=== PATIENT | male | born 1960 | race Caucasian/White ===

== ENCOUNTER 2017-09-06 01:16 | Emergency (ER) | payer BC ==
[2017-09-06] MEDS ORDERED: LIDOCAINE 2% VISCOUS SOLN 20 ML UDCUP PO ONE (01:46)
[2017-09-06] MEDS ORDERED: CLINDAMYCIN HCL 150 MG CAPSULE PO ONE (01:46)
--- NOTE | 2017-09-06 01:54 | ER Document Report ---
ED Oral Problem - General Chief Complaint: Toothache Stated Complaint: TOOTHACHE Time Seen by Provider: 09/06/17 01:38 Mode of Arrival: Ambulatory Information source: Patient Notes: 57-year-old male presents to ED for dental pain to tooth #3. He states he had a large part of tooth break off about 6 months ago and he had some minor pain off and on since then. He states yesterday the pain increased to about 3/5 and today it has been as much is 5 /5. He states he took ibuprofen he thinks about 600 mg around 8:00 now his pain is 3/5. He states his family scared him because he had some swelling to his cheek and told me needed to come in and get started on some antibiotics. He has mild swelling to the right jaw and face. - HPI Patient complains to provider of: Swelling of face, Swelling of jaw, Toothache Onset: Other - Started out mild 6 months ago started worse yesterday became concerned today when his jaw had some mild swelling and family scanning. Came in tonight to get some antibiotics. Quality of pain: Achy, Dull Severity: Moderate Pain Level: 3 Swollen jaw/face: Mild Associated symptoms: Dental decay, Jaw pain, Other - Mild swelling to the right jaw and face from a dental infection to tooth #3 states he lost a large part of the tooth about 6 months ago Worsened by: Cold Relieved by: Nothing Similar symptoms previously: Yes Recently seen / treated by doctor/dentist: No - Related Data Allergies/Adverse Reactions: No Known Allergies Allergy (Unverified 09/06/17 01:18) Past Medical History - General Information source: Patient - Social History Smoking Status: Current Every Day Smoker Cigarette use (# per day): Yes - 3-5 cigarettes a day Chew tobacco use (# tins/day): No Smoking Education Provided: Yes - 4 minutes Frequency of alcohol use: Occasional Drug Abuse: None Occupation: [employer] Lives with: Family Family History: Reviewed & Not Pertinent Patient has suicidal ideation: No Patient has homicidal ideation: No - Past Medical History Cardiac Medical History: Reports: Hx Hypercholesterolemia Pulmonary Medical History: Reports: Hx COPD EENT Medical History: Reports: None Neurological Medical History: Reports: None Endocrine Medical History: Reports: None Renal/ Medical History: Reports: None Malignancy Medical History: Reports None GI Medical History: Reports: None Musculoskeltal Medical History: Reports Hx Arthritis, Reports Hx Musculoskeletal Deformity, Reports Hx Musculoskeletal Trauma Skin Medical History: Reports None Psychiatric Medical History: Reports: Hx Anxiety Traumatic Medical History: Reports: Hx Fractures - Skull and ribs, Hx Pneumothorax - Did not need chest tube, Hx Traumatic Brain Injury Infectious Medical History: Reports: None Past Surgical History: Reports: Hx Orthopedic Surgery - Tendon repair to thumb - Immunizations Immunizations up to date: Yes Review of Systems - Review of Systems Notes: Constitutional: ABSENT: chills, fever(s), headache(s), weight gain, weight loss Dental pain to tooth #3 mild jaw and face swelling Cardiovascular: Negative chest pain, dyspnea on exertion, edema, orthropnea, palpitations] Respiratory: Negative cough, hemoptysis, shortness of breath Gastrointestinal: abdominal pain, constipation, diarrhea, hematemesis, hematochezia, nausea, vomiting Genitourinary: No complaints Musculoskeletal: No complaints no joint tenderness no joint swelling Integumentary: Negative assessment. No redness to the face mild swelling Neurological: Denies abnormal gait, abnormal speech, confusion, dizziness, focal weakness, syncope Psychiatric: Denies: anxiety, depression, homicidal ideation, suicidal ideation Endocrine: No complaint Hematologic/Lymphatic: No complaints of easy bleeding, easy bruising, lymphadenopathy] Physical Exam - Vital signs Vitals: Temp Pulse Resp BP Pulse Ox 98.1 F 77 16 141/84 H 96 09/06/17 01:19 09/06/17 01:19 09/06/17 01:19 09/06/17 01:19 09/06/17 01:19 - General Notes: PHYSICAL EXAMINATION: GENERAL: Well-appearing, well-nourished and in no acute distress. HEAD: Atraumatic, normocephalic. EYES: Pupils equal round and reactive to light, extraocular movements intact, sclera anicteric, conjunctiva are normal. ENT: Mild swelling to gums around tooth #3 with mild swelling to the cheek at the jawline and about an inch up. NECK: Normal range of motion, supple without lymphadenopathy LUNGS: Breath sounds clear to auscultation bilaterally and equal. No wheezes rales or rhonchi. HEART: Regular rate and rhythm without murmurs ABDOMEN: Soft, nontender, nondistended abdomen. No guarding, no rebound. No masses appreciated. Musculoskeletal: Normal range of motion, no pitting or edema. No cyanosis. NEUROLOGICAL: Cranial nerves grossly intact. Normal speech, normal gait. Normal sensory, motor exams PSYCH: Normal mood, normal affect. SKIN: Warm, Dry, normal turgor, no rashes or lesions noted. Course - Re-evaluation Re-evalutation: 09/06/17 02:11 Patient had a dental infection to the tooth #3. He states that he broke the tooth about 6 months ago started having increased pain yesterday and then the pain was a little worse tonight and his family and friends told him with swelling to his jaw he needed to come to the emergency room because he could have all chronic complications if he did not get antibiotics. Patient states the main reason he came to the emergency room was to get antibiotics. Patient was treated with clindamycin 600 mg in the emergency room as well as viscous lidocaine in a syringe that he can take home and applied to the area as needed for pain patient was given precautions of using viscous lidocaine of chewing on his cheek or irritation or numbness to his tongue. Patient verbalized understanding of this. Patient had no complications when received the lidocaine in the emergency room. Patient was discharged home with a prescription for clindamycin and instructions to follow-up with the dentist as soon as possible. Patient was also given instructions concerning stopping smoking as this is affecting his COPD and his dental health. Patient verbalized understanding of all instructions and agreed with plan of care. Patient stated he had no other questions or concerns at this time. - Vital Signs Vital signs: Temp Pulse Resp BP Pulse Ox 97.2 F 74 16 115/78 96 09/06/17 02:04 09/06/17 02:04 09/06/17 01:19 09/06/17 02:04 09/06/17 02:04 Discharge - Discharge Clinical Impression: Pain due to dental caries Condition: Stable Disposition: HOME, SELF-CARE Instructions: Family Physicians / Practices Additional Instructions: TOOTHACHE: Your pain is due to dental decay. The tooth must be repaired in order for you to feel better. You will, therefore, be referred to a dentist. We do not have dentists on the staff at [facility]. Severe swelling or drainage around a tooth usually means a dental abscess. This also requires evaluation and treatment by the dentist, but antibiotics may be prescribed while awaiting dental treatment. You should be rechecked immediately if you develop major swelling of the face, increasing pain, a lump in the jaw or gums, headache, difficulty swallowing, or fever. You have been given a syringe of viscous lidocaine. You can put a small amount on your tooth every 3-4 hours for your dental pain. This will numb your gums. Be careful that she did not get on your tongue a can numb your tongue. Be careful swallowing after you use this medication CLINDAMYCIN: You have been given a prescription for the antibiotic clindamycin. It is often prescribed for infections in the mouth, such as dental infections or abscesses, and for skin infections due to MRSA. It's important that you take all the medication, unless instructed otherwise by your physician. Failure to complete the entire course can result in relapse of your condition. Common side effects of antibiotics include nausea, intestinal cramping, or diarrhea. Women may develop vaginal yeast infections, and babies can get yeast (thrush) in the mouth following the use of antibiotics. Contact your physician if you develop significant side effects from this medication. Allergy to this antibiotic can result in hives, wheezing, faintness, or itching. If symptoms of allergy occur, stop the medication and call the doctor. FOLLOW-UP CARE: You have been referred for follow-up care to the dentists listed below. Call the dentists office for an appointment as you were instructed or within the next two days. If you experience worsening or a significant change in your symptoms, notify the physician immediately or return to the Emergency Department at any time for re-evaluation. [facility] [address] [place], [place] [facility] [address] [place] [address] [facility] [address] [facility] [address] [facility] [address] [facility] [place] [address] [email or web address] [facility] [address] [place] [address] Friday- 8:00am to 5:00 pm Will see patients from other [facility]. Charges based on income and family size and accepts Medicare, Medicaid, and Insurances Will pull molars [facility] [address] [address] Hours of Operation 8:00 am - 4:30 pm weekdays The following dental offices accept Medicaid: [facility] [address]. [place] [facility] Anthony Love, Rafa, and Elaine oral surgery Dr. Hall ([place]) Dr. Hein ([place]) [facility] Drs. Charles ([place]) Dr. Garcia ([place]) [facility] Dr. Hdz ([place]) Drs. Baez and ([place]) Medicaid Care Line Prescriptions: Clindamycin HCl 300 mg PO Q6 #28 capsule Forms: Elevated Blood Pressure, Smoking Cessation Education, Return to Work
[2017-09-06 02:06] VITALS: BP 115/78
== END 2017-09-06 02:20 | disposition home or self-care (01) ==
LOC: ER 01:16
DX: K02.9 Dental caries, unspecified (principal); K08.89 Other specified disorders of teeth and supporting structures; R22.0 Localized swelling, mass and lump, head; F17.210 Nicotine dependence, cigarettes, uncomplicated
CPT/HCPCS: 99406; 99282; J3490

== ENCOUNTER 2018-06-04 20:27 | Emergency (ER) | payer SELFPAY ==
[2018-06-04 21:14] LABS: ABSOLUTE BASOPHILS # (AUTO) 0.1 10^3/uL (0.0-0.2); ABSOLUTE EOSINOPHILS # (AUTO) 0.2 10^3/uL (0.0-0.6); ABSOLUTE LYMPHOCYTES (AUTO) 1.2 10^3/uL (0.5-4.7); ABSOLUTE MONOCYTES (AUTO) 0.6 10^3/uL (0.1-1.4); ABSOLUTE NEUT (AUTO) 8.3 10^3/uL (1.7-8.2); BASOPHILS % (AUTO) 0.8 % (0-2); EOSINOPHILS % (AUTO) 2.4 % (0-6); HEMATOCRIT 44.1 % (37.9-51.0); HEMOGLOBIN 15.7 g/dL (13.5-17.0); LYMPHOCYTES % (AUTO) 11.2 % (13-45); MEAN CORPUSCULAR HEMOGLOBIN 31.4 pg (27.0-33.4); MEAN CORPUSCULAR HGB CONC 35.6 g/dL (32.0-36.0); MEAN CORPUSCULAR VOLUME 88 fl (80-97); MONOCYTES % (AUTO) 5.8 % (3-13); PLATELET COUNT 271 10^3/uL (150-450); RED BLOOD COUNT 5.01 10^6/uL (4.35-5.55); RED CELL DISTRIBUTION WIDTH 13.8 % (11.5-14.0); SEGMENTED NEUTROPHILS % (AUTO) 79.8 % (42-78); TOTAL CELLS COUNTED % (AUTO) 100 %; WHITE BLOOD COUNT 10.4 10^3/uL (4.0-10.5)
[2018-06-04 21:20] LABS: ANION GAP 10 (5-19); BLOOD UREA NITROGEN 11 mg/dL (7-20); CALCIUM 9.4 mg/dL (8.4-10.2); CARBON DIOXIDE 32 mmol/L (22-30); CHLORIDE 100 mmol/L (98-107); GLUCOSE 159 mg/dL (75-110); POTASSIUM 3.7 mmol/L (3.6-5.0); SODIUM 141.7 mmol/L (137-145)
--- NOTE | 2018-06-04 21:31 | RADIOLOGY REPORT (SQ) ---
3 VIEWS OF THE RIGHT HAND HISTORY: Metal object in hand COMPARISON: None. FINDINGS: Bone mineralization is normal. No acute fracture is seen. Joint spaces are preserved. 5 mm foreign body abutting the medial soft tissues of the third PIP joint. Additional 6 mm curvilinear foreign body abutting the medial soft tissues of the fifth PIP joint. IMPRESSION: 2 foreign bodies as listed above.
--- NOTE | 2018-06-04 21:35 | ER Document Report ---
ED General - General Chief Complaint: Hand Injury Stated Complaint: RIGHT HAND SWOLLEN Time Seen by Provider: 06/04/18 21:04 Notes: Patient is a 58-year-old male without chronic medical problems who presents with 1 week of progressively worsening pain and swelling to his right hand. He states that the swelling started after he was pulling a generator chain between his third and fourth digits and the chain slipped pulling roughly across his hand and through his fingers. He states that since that time he has had a fluctuating throbbing, constant, aching pain with associated swelling. He states the swelling has periods of worsening and improving that appear to be related to how much he is using the hand. No history of similar injury in the past. He has not done anything to treat the hand and admits that he has been continuing to work and use the hand regularly. He has not seen his general doctor regarding this concern. He states that his flexion range of motion is somewhat limited due to the swelling but when the swelling is reduced he does have full normal range of motion. Denies any additional injuries. No fever. He states sometimes he gets shooting pains that radiate from his hand up to his elbow. No loss of sensation. - Related Data Allergies/Adverse Reactions: No Known Allergies Allergy (Unverified 09/06/17 01:18) Past Medical History - General Information source: Patient - Social History Smoking Status: Current Every Day Smoker Chew tobacco use (# tins/day): No Frequency of alcohol use: Rare Drug Abuse: None Lives with: Spouse/Significant other Family History: Reviewed & Not Pertinent Patient has suicidal ideation: No Patient has homicidal ideation: No - Past Medical History Cardiac Medical History: Reports: Hx Hypercholesterolemia Pulmonary Medical History: Reports: Hx COPD Renal/ Medical History: Denies: Hx Peritoneal Dialysis Musculoskeletal Medical History: Reports Hx Arthritis, Reports Hx Musculoskeletal Deformity, Reports Hx Musculoskeletal Trauma Psychiatric Medical History: Reports: Hx Anxiety Traumatic Medical History: Reports: Hx Fractures - Skull and ribs, Hx Pneumothorax - Did not need chest tube, Hx Traumatic Brain Injury Past Surgical History: Reports: Hx Orthopedic Surgery - Tendon repair to thumb - Immunizations Immunizations up to date: Yes Review of Systems - Review of Systems Notes: Constitutional: Negative for fever. HENT: Negative for sore throat. Eyes: Negative for visual changes. Cardiovascular: Negative for chest pain. Respiratory: Negative for shortness of breath. Gastrointestinal: Negative for abdominal pain, vomiting or diarrhea. Genitourinary: Negative for dysuria. Musculoskeletal: Positive for right hand pain Skin: Negative for rash. Neurological: Negative for headaches, weakness or numbness. 10 point ROS negative except as marked above and in HPI. Physical Exam - Vital signs Vitals: Temp Pulse Resp BP Pulse Ox 99.0 F 86 18 144/84 H 97 06/04/18 20:32 06/04/18 20:32 06/04/18 20:32 06/04/18 20:32 06/04/18 20:32 Interpretation: Normal Notes: PHYSICAL EXAMINATION: GENERAL: Well-appearing, well-nourished and in no acute distress. HEAD: Atraumatic, normocephalic. EYES: Pupils equal round and reactive to light, extraocular movements intact, sclera anicteric, conjunctiva are normal. ENT: nares patent, oropharynx clear without exudates. Moist mucous membranes. NECK: Normal range of motion, supple without lymphadenopathy LUNGS: Breath sounds clear to auscultation bilaterally and equal. No wheezes rales or rhonchi. HEART: Regular rate and rhythm without murmurs ABDOMEN: Soft, nontender, normoactive bowel sounds. No guarding, no rebound. No masses appreciated. EXTREMITIES: The patient is able to fully extend the digits against resistance. He is able to flex the digits almost completely although it is limited by the degree of swelling at the bases of the fingers again for the second through fourth digits. NEUROLOGICAL: No focal neurological deficits. Moves all extremities spontaneously and on command. PSYCH: Normal mood, normal affect. SKIN: Warm, Dry, normal turgor, diffuse swelling mostly to the volar surface of the right hand. There is trace area of redness and ecchymosis over the volar central aspect of the right hand starting at the MCPs of the third and fourth digit extending down to the wrist. Course - Re-evaluation Re-evalutation: 06/04/18 21:32 Patient presents with diffuse swelling mostly to the palmar surface of the right hand with what appears to be a subcutaneous hematoma and reactive inflammation. This did occur after a blunt force trauma when pulling on a generator cord that slipped through his fingers. The area of the trauma is apparent with a mild area of erythema but there is diffuse swelling to the hand again mostly over the second through fourth digits. The patient is able to fully extend the digits against resistance. He is able to flex the digits almost completely although it is limited by the degree of swelling at the bases of the fingers again for the second through fourth digits. There is no evidence of associated infection. The patient does have a metallic foreign body in the third digit on x-ray which she states is actually been there for years and is unlikely to be related to his presentation today. No evidence of an associated cellulitis. I have instructed the patient to follow-up closely with hand surgery to ensure that he does not require more vigorous management at this point be on NSAIDs and ice compresses as well as avoiding use of the hand. The patient does admit that is been continuing to work and use the hand regularly despite the injury. - Vital Signs Vital signs: Temp Pulse Resp BP Pulse Ox 98.7 F 86 16 128/87 H 96 06/04/18 21:54 06/04/18 20:32 06/04/18 21:54 06/04/18 21:54 06/04/18 21:54 - Laboratory Result Diagrams: 06/04/18 20:47 06/04/18 20:47 Laboratory results interpreted by me: 06/04/18 06/04/18 20:47 20:47 Seg Neutrophils % 79.8 H Lymphocytes % 11.2 L Absolute Neutrophils 8.3 H Carbon Dioxide 32 H Glucose 159 H - Diagnostic Test Radiology reviewed: Image reviewed, Reports reviewed Radiology results interpreted by me: 06/05/18 03:46 Right hand x-ray: Diffuse soft tissue swelling, several retained metallic foreign bodies Discharge - Discharge Clinical Impression: Swelling of right hand Injury of right hand Qualifiers: Encounter type: initial encounter Qualified Code(s): S69.91XA - Unspecified injury of right wrist, hand and finger(s), initial encounter Condition: Good Disposition: HOME, SELF-CARE Additional Instructions: Your x-ray does not show any acute fracture today. It does show retained metallic foreign bodies that have likely been there for quite some time based on your history. You likely have a soft tissue injury but may also have an associated tendinous injury. Take the naproxen that has been prescribed. Continue to apply ice to the area is much your able. Please follow-up with orthopedic hand surgery at your earliest ability ideally within the next 2-3 days. Please return to the emergency department immediately if you have worsening of the swelling, increasing pain, fever, or any other symptoms that are worrisome to you. Prescriptions: Naproxen 500 mg PO BID #28 tablet Forms: Return to Work Referrals: EVER GARCIA DO [ACTIVE STAFF] - Follow up tomorrow
[2018-06-04] MEDS ORDERED: NAPROXEN 250 MG TABLET PO ONE (21:36)
[2018-06-04 22:03] VITALS: BP 128/87
== END 2018-06-04 21:55 | disposition home or self-care (01) ==
LOC: ER 20:27
DX: S69.91XA Unspecified injury of right wrist, hand and finger(s), initial encounter (principal); M79.89 Other specified soft tissue disorders; X50.0XXA Overexertion from strenuous movement or load, initial encounter; F17.200 Nicotine dependence, unspecified, uncomplicated; E78.00 Pure hypercholesterolemia, unspecified; J44.9 Chronic obstructive pulmonary disease, unspecified
CPT/HCPCS: 36415; 80048; 85025; 99284

== ENCOUNTER 2018-06-08 12:38 | Inpatient (IN) | payer SELFPAY ==
--- NOTE | 2018-06-08 13:46 | ER Document Report ---
ED Medical Screen (RME) - General Chief Complaint: Abscess Stated Complaint: HAND INJURY Time Seen by Provider: 06/08/18 13:38 Notes: 58-year-old male patient had an injury to his right palm 10 days ago when a chain was pulled through the hand. He was seen in the emergency room on 2017. That time he was felt to have a subcutaneous hematoma in the palm with a reactive inflammation. He was instructed to follow-up with Dr. phelan the following day. He did not and stated he was trying to make an appointment for today. He reports increased swelling in the palm in the third finger. Brief exam shows the third finger swollen, the palm tissue swollen, one open wound with purulent drainage, proximal to that wound is a large blisterlike area that feels fluctuant. On the patient's visit here on 06/04/2018, he did have an elevated blood sugar 159, so a hemoglobin A1c will be added to his lab work today. I have greeted and performed a rapid initial assessment of this patient. A comprehensive ED assessment and evaluation of the patient, analysis of test results and completion of the medical decision making process will be conducted by additional ED providers. TRAVEL OUTSIDE OF THE [place] IN LAST 30 DAYS: No - Related Data Allergies/Adverse Reactions: No Known Allergies Allergy (Verified 06/08/18 12:39) Past Medical History - Past Medical History Cardiac Medical History: Reports: Hx Hypercholesterolemia Pulmonary Medical History: Reports: Hx COPD Renal/ Medical History: Denies: Hx Peritoneal Dialysis Musculoskeltal Medical History: Reports Hx Arthritis, Reports Hx Musculoskeletal Deformity, Reports Hx Musculoskeletal Trauma Psychiatric Medical History: Reports: Hx Anxiety Traumatic Medical History: Reports: Hx Fractures - Skull and ribs, Hx Pneumothorax - Did not need chest tube, Hx Traumatic Brain Injury Past Surgical History: Reports: Hx Orthopedic Surgery - Tendon repair to thumb - Immunizations Immunizations up to date: Yes Physical Exam - Vital signs Vitals: Temp Pulse Resp BP Pulse Ox 99.4 F 88 17 134/84 H 97 06/08/18 12:45 06/08/18 12:45 06/08/18 12:45 06/08/18 12:45 06/08/18 12:45 Course - Vital Signs Vital signs: Temp Pulse Resp BP Pulse Ox 99.4 F 88 17 134/84 H 97 06/08/18 12:45 06/08/18 12:45 06/08/18 12:45 06/08/18 12:45 06/08/18 12:45
[2018-06-08 14:18] LABS: ABSOLUTE EOSINOPHILS # (AUTO) 0.1 10^3/uL (0.0-0.6); ABSOLUTE LYMPHOCYTES (AUTO) 0.9 10^3/uL (0.5-4.7); ABSOLUTE MONOCYTES (AUTO) 0.8 10^3/uL (0.1-1.4); BASOPHILS % (AUTO) 0.4 % (0-2); EOSINOPHILS % (AUTO) 1.3 % (0-6); HEMATOCRIT 46.3 % (37.9-51.0); HEMOGLOBIN 15.8 g/dL (13.5-17.0); LYMPHOCYTES % (AUTO) 7.9 % (13-45); MEAN CORPUSCULAR HGB CONC 34.1 g/dL (32.0-36.0); MEAN CORPUSCULAR VOLUME 88 fl (80-97); MONOCYTES % (AUTO) 6.4 % (3-13); PLATELET COUNT 321 10^3/uL (150-450); RED BLOOD COUNT 5.28 10^6/uL (4.35-5.55); RED CELL DISTRIBUTION WIDTH 13.6 % (11.5-14.0); TOTAL CELLS COUNTED % (AUTO) 100 %; WHITE BLOOD COUNT 11.9 10^3/uL (4.0-10.5)
[2018-06-08] MEDS ORDERED: VANCOMYCIN HCL INJ 1000 MG VIAL IV ONE (14:25)
[2018-06-08] MEDS ORDERED: PIPERACILLIN/TAZOBACTAM 3.375 GM VIAL IV ONE (14:25)
[2018-06-08 14:38] LABS: ALANINE AMINOTRANSFERASE 29 U/L (21-72); ALBUMIN 4.6 g/dL (3.5-5.0); ALKALINE PHOSPHATASE 81 U/L (38-126); ANION GAP 14 (5-19); ASPARTATE AMINO TRANSFERASE 28 U/L (17-59); BILIRUBIN,DIRECT 0.3 mg/dL (0.0-0.4); BILIRUBIN,TOTAL 0.6 mg/dL (0.2-1.3); BLOOD UREA NITROGEN 11 mg/dL (7-20); CALCIUM 9.7 mg/dL (8.4-10.2); CARBON DIOXIDE 29 mmol/L (22-30); CHLORIDE 99 mmol/L (98-107); CREATINE KINASE 91 U/L (55-170); GLUCOSE 90 mg/dL (75-110); POTASSIUM 4.5 mmol/L (3.6-5.0); SODIUM 141.9 mmol/L (137-145); TOTAL PROTEIN 7.9 g/dL (6.3-8.2)
--- NOTE | 2018-06-08 14:39 | ER Document Report ---
ED Hand/Wrist Injury - General Chief Complaint: Abscess Stated Complaint: HAND INJURY Time Seen by Provider: 06/08/18 13:38 Information source: Patient Notes: 58-year-old male who presents today with some swelling and pain to the right hand. Patient now on 14 days had an incident where he was gripping a chain of a generator when it "kicked back" causing a shearing force between the fingers of his right hand. He denies any bleeding or laceration at that time. Patient was seen here 4 days ago with an x-ray for some intermittent swelling of the hand. Were no signs of erythema, infection, with almost full range of motion. Patient states she has progressively had more pain. Low-grade fever today. No vomiting. TRAVEL OUTSIDE OF THE [place] IN LAST 30 DAYS: No - HPI Injury to: Hand Onset: Other - See above Timing: Constant Quality of pain: Achy Severity: Mild Pain Level: 2 Context: Other - See above - Related Data Allergies/Adverse Reactions: No Known Allergies Allergy (Verified 06/08/18 12:39) Past Medical History - Social History Smoking Status: Current Every Day Smoker Chew tobacco use (# tins/day): No Frequency of alcohol use: Rare Drug Abuse: None Family History: Reviewed & Not Pertinent Patient has suicidal ideation: No Patient has homicidal ideation: No - Past Medical History Cardiac Medical History: Reports: Hx Hypercholesterolemia Pulmonary Medical History: Reports: Hx COPD Renal/ Medical History: Denies: Hx Peritoneal Dialysis Musculoskeletal Medical History: Reports Hx Arthritis, Reports Hx Musculoskeletal Deformity, Reports Hx Musculoskeletal Trauma Psychiatric Medical History: Reports: Hx Anxiety Traumatic Medical History: Reports: Hx Fractures - Skull and ribs, Hx Pneumothorax - Did not need chest tube, Hx Traumatic Brain Injury Past Surgical History: Reports: Hx Orthopedic Surgery - Tendon repair to thumb - Immunizations Immunizations up to date: Yes Review of Systems - Review of Systems Constitutional: Fever Gastrointestinal: denies: Vomiting Physical Exam - Vital signs Vitals: Temp Pulse Resp BP Pulse Ox 99.4 F 88 17 134/84 H 97 06/08/18 12:45 06/08/18 12:45 06/08/18 12:45 06/08/18 12:45 06/08/18 12:45 Notes: Reviewed vital signs and nursing note as charted by RN. CONSTITUTIONAL: Alert and oriented and responds appropriately to questions. Well -appearing; well-nourished EXT: Patient has swelling, erythema, fluctuance, and induration to the palmar aspect of the hand. The swelling and erythema extends into the proximal volar aspect of the fingers. There is some swelling without erythema to the dorsal aspect of the hand. The swelling stops the proximal wrist. There is no obvious particular joint swelling or pain with flexion or extension of the fingers that causes markedly increased pain. Course - Re-evaluation Re-evalutation: 06/08/18 14:44 Given the above history and physical, blood work, blood cultures, and x-ray repeat of the hand has been ordered. I have called and spoken directly to the orthopedic surgeon and have explained that I believe the patient most likely needs operative intervention. We have ordered vancomycin and Zosyn for broad- spectrum coverage. 06/08/18 15:03 Labs as recorded showing a slightly elevated white count. X-ray on my initial interpretation shows soft tissue swelling without any obvious bone decay. Patient will be admitted to the orthopedic surgeon. - Vital Signs Vital signs: Temp Pulse Resp BP Pulse Ox 99.4 F 88 17 134/84 H 97 06/08/18 12:45 06/08/18 12:45 06/08/18 12:45 06/08/18 12:45 06/08/18 12:45 - Laboratory Result Diagrams: 06/08/18 13:57 06/08/18 13:57 Laboratory results interpreted by me: 06/08/18 13:57 WBC 11.9 H Seg Neutrophils % 84.0 H Lymphocytes % 7.9 L Absolute Neutrophils 10.0 H Discharge - Discharge Clinical Impression: Infection of right hand Condition: Fair Disposition: ADMITTED INPATIENT Admitting Provider: Orthopedics Unit Admitted: Surgical Floor
--- NOTE | 2018-06-08 15:39 | RADIOLOGY REPORT (SQ) ---
EXAM DESCRIPTION: HAND RIGHT 3 VIEWS COMPLETED DATE/TIME: 06/08/2018 2:51 pm REASON FOR STUDY: 22; palm swelling COMPARISON: 06/04/2018 EXAM PARAMETERS: NUMBER OF VIEWS: Three views. TECHNIQUE: AP, lateral and oblique radiographic images acquired of the right hand. LIMITATIONS: None. FINDINGS: MINERALIZATION: Normal. BONES: No acute fracture or dislocation. No worrisome bone lesions. JOINTS: No effusions. SOFT TISSUES: Diffuse right hand soft tissue swelling. Old radiopaque foreign bodies are present arabella ng the ulnar aspect of the 3rd finger PIP joint and 5th finger PIP joint, unchanged from prior study OTHER: No other significant finding. IMPRESSION: Diffuse dorsal right hand soft tissue swelling. No underlying fracture. No soft tissue gas. TECHNICAL DOCUMENTATION: JOB ID: [id number] [email or web address]- All Rights Reserved Reading location - IP/workstation name: [email or web address]
[2018-06-08] MEDS ORDERED: MORPHINE SULFATE 10 MG/ML INJ IV ONE (16:20)
[2018-06-08] MEDS: RINGERS SOLUTION,LACTATED 1,000 ML IV PRN (19:31)
--- NOTE | 2018-06-08 19:56 | RADIOLOGY REPORT (SQ) ---
EXAM DESCRIPTION: CHEST SINGLE VIEW COMPLETED DATE/TIME: 06/08/2018 6:24 pm REASON FOR STUDY: pre op COMPARISON: None. EXAM PARAMETERS: NUMBER OF VIEWS: One view. TECHNIQUE: Single frontal radiographic view of the chest acquired. RADIATION DOSE: NA LIMITATIONS: None. FINDINGS: LUNGS AND PLEURA: No opacities, masses or pneumothorax. No pleural effusion. MEDIASTINUM AND HILAR STRUCTURES: No masses. Contour normal. HEART AND VASCULAR STRUCTURES: Heart normal in size. Normal vasculature. BONES: No acute findings. HARDWARE: None in the chest. OTHER: No other significant finding. IMPRESSION: NO ACUTE RADIOGRAPHIC FINDING IN THE CHEST. TECHNICAL DOCUMENTATION: JOB ID: [id number] [employer]- All Rights Reserved Reading location - IP/workstation name: [email or web address]
--- NOTE | 2018-06-08 20:11 | EKG REPORT ---
SEVERITY:- NORMAL ECG - SINUS RHYTHM : Confirmed by: Jw Toscano 08-Jun-2018 20:10:45
[2018-06-08] MEDS: PIPERACILLIN SODIUM/TAZOBACTAM 3.375 GM in NORMAL SALINE 100 ML IV SCH (21:44)
[2018-06-08] MEDS: VANCOMYCIN HCL 1,500 MG in DEXTROSE 5%-WATER 250 ML IV SCH (22:19)
[2018-06-09] MEDS: OXYCODONE HCL IR 5 MG TABLET PO PRN ×2 (00:39→11:23)
[2018-06-09] MEDS: PIPERACILLIN SODIUM/TAZOBACTAM 3.375 GM in NORMAL SALINE 100 ML IV SCH ×4 (03:55→21:55)
[2018-06-09 05:21] LABS: ABSOLUTE BASOPHILS # (AUTO) 0.1 10^3/uL (0.0-0.2); ABSOLUTE EOSINOPHILS # (AUTO) 0.2 10^3/uL (0.0-0.6); ABSOLUTE LYMPHOCYTES (AUTO) 1.1 10^3/uL (0.5-4.7); ABSOLUTE MONOCYTES (AUTO) 0.9 10^3/uL (0.1-1.4); ABSOLUTE NEUT (AUTO) 7.8 10^3/uL (1.7-8.2); BASOPHILS % (AUTO) 0.7 % (0-2); EOSINOPHILS % (AUTO) 2.2 % (0-6); HEMATOCRIT 40.4 % (37.9-51.0); HEMOGLOBIN 13.8 g/dL (13.5-17.0); LYMPHOCYTES % (AUTO) 10.6 % (13-45); MEAN CORPUSCULAR HGB CONC 34.2 g/dL (32.0-36.0); MEAN CORPUSCULAR VOLUME 88 fl (80-97); MONOCYTES % (AUTO) 8.7 % (3-13); PLATELET COUNT 256 10^3/uL (150-450); RED BLOOD COUNT 4.61 10^6/uL (4.35-5.55); RED CELL DISTRIBUTION WIDTH 13.8 % (11.5-14.0); SEGMENTED NEUTROPHILS % (AUTO) 77.8 % (42-78); TOTAL CELLS COUNTED % (AUTO) 100 %
[2018-06-09 05:56] LABS: ANION GAP 12 (5-19); BLOOD UREA NITROGEN 10 mg/dL (7-20); C-REACTIVE PROTEIN 50.1 mg/L (<10.0); CALCIUM 8.9 mg/dL (8.4-10.2); CARBON DIOXIDE 25 mmol/L (22-30); CHLORIDE 104 mmol/L (98-107); GLUCOSE 100 mg/dL (75-110); POTASSIUM 4.4 mmol/L (3.6-5.0)
[2018-06-09 06:06] LABS: ERYTHROCYTE SEDIMENTATION RATE 34 mm/hr (0-20)
[2018-06-09] MEDS: VANCOMYCIN HCL 1,500 MG in DEXTROSE 5%-WATER 250 ML IV SCH ×2 (11:14→22:41)
[2018-06-09] MEDS: MORPHINE SULFATE 10 MG/ML INJ IV PRN ×2 (12:18→15:11)
--- NOTE | 2018-06-09 12:20 | PDOC H&P ---
History of Present Illness Admission Date/PCP: 06/08/18 15:05 Patient complains of: Right hand swelling History of Present Illness: MARKO CH is a 58 year old male sustained injury to his right hand about 1 week ago. He was seen at the emergency room where x-rays were done and patient was thought to have hematoma along the palm. He then presented to the emergency room yesterday due to redness and swelling. Dr. Snyder was notified and patient was diagnosed with hand abscess. Patient states over the past 24 hours it has increased in size along with pain that radiates up into his forearm and arm. Notes positive fevers denies chills or sweats. Pain 08/06. Past Medical History Cardiac Medical History: Reports: Hyperlipidema Pulmonary Medical History: Reports: Chronic Obstructive Pulmonary Disease (COPD) Musculoskeltal Medical History: Reports: Arthritis Traumatic Medical History: Reports: Pneumothorax - Did not need chest tube, Traumatic Brain Injury Past Surgical History Past Surgical History: Reports: Orthopedic Surgery - Tendon repair to thumb Social History Smoking Status: Current Every Day Smoker - Advance Directive Resuscitation Status: Full Code Family History Family History: Reviewed & Not Pertinent Parental Family History Reviewed: No Children Family History Reviewed: No Sibling(s) Family History Reviewed.: No Medication/Allergy Home Medications: No Home Medications 06/08/18 Allergies/Adverse Reactions: No Known Allergies Allergy (Verified 06/08/18 12:39) Review of Systems Constitutional: PRESENT: fever(s). ABSENT: chills, headache(s), weight gain, weight loss Eyes: ABSENT: visual disturbances Ears: ABSENT: hearing changes Cardiovascular: ABSENT: chest pain, dyspnea on exertion, edema, orthropnea, palpitations Respiratory: ABSENT: cough, hemoptysis Gastrointestinal: ABSENT: abdominal pain, constipation, diarrhea, hematemesis, hematochezia, nausea, vomiting Genitourinary: ABSENT: dysuria, hematuria Musculoskeletal: PRESENT: as per HPI Integumentary: ABSENT: rash, wounds Neurological: ABSENT: abnormal gait, abnormal speech, confusion, dizziness, focal weakness, syncope Psychiatric: ABSENT: anxiety, depression, homidical ideation, suicidal ideation Endocrine: ABSENT: cold intolerance, heat intolerance, menstrual abnormalities, polydipsia, polyuria Hematologic/Lymphatic: ABSENT: easy bleeding, easy bruising, lymphadenopathy Physical Exam Vital Signs: Temp Pulse Resp BP Pulse Ox 99.1 F 78 17 123/73 95 06/09/18 11:57 06/09/18 11:57 06/09/18 11:57 06/09/18 11:57 06/09/18 11:57 Intake & Output 06/08/18 06/09/18 06/10/18 06:59 06:59 06:59 Intake Total 970 1100 Balance 970 1100 General appearance: PRESENT: no acute distress, well-developed, well-nourished Head exam: PRESENT: atraumatic, normocephalic Eye exam: PRESENT: conjunctiva pink, EOMI, PERRLA. ABSENT: scleral icterus Ear exam: PRESENT: normal external ear exam Mouth exam: PRESENT: moist, tongue midline Teeth exam: PRESENT: poor dentation Neck exam: PRESENT: full ROM. ABSENT: carotid bruit, JVD, lymphadenopathy, thyromegaly Respiratory exam: PRESENT: unlabored Cardiovascular exam: PRESENT: RRR. ABSENT: diastolic murmur, rubs, systolic murmur Pulses: PRESENT: normal dorsalis pedis pul, +2 pedal pulses bilateral Vascular exam: PRESENT: normal capillary refill GI/Abdominal exam: PRESENT: normal bowel sounds, soft. ABSENT: distended, guarding, mass, organolmegaly, rebound, tenderness Rectal exam: PRESENT: deferred Musculoskeletal exam: PRESENT: other - Right hand: Diffuse swelling throughout the hand. Tenderness to palpation on the mid palm along the carpal tunnel extending up to the volar aspect of the third digit including the proximal phalanx of the third digit. Subcutaneous purulence noted. Mild pain with passive stretch of the middle finger. No pain with stretch of the index ring or small finger. Patient has hypoesthesias on examination thumb, index middle and ring finger intact sensation to sharp versus dull touch. Two-point discrimination 7 mm thumb, index and middle finger. Palpable lymphadenopathy with streaking erythema along the volar surface of the forearm. No palpable fluctuance. Limited range of motion secondary to pain. Neurological exam: PRESENT: alert, awake, oriented to person, oriented to place , oriented to time, oriented to situation, CN II-XII grossly intact. ABSENT: motor sensory deficit Psychiatric exam: PRESENT: appropriate affect, normal mood. ABSENT: homicidal ideation, suicidal ideation Skin exam: PRESENT: dry, intact, warm. ABSENT: cyanosis, rash Results Laboratory Results: 06/09/18 04:17 06/09/18 04:17 06/09/18 06/09/18 04:17 04:17 WBC 10.0 RBC 4.61 Hgb 13.8 Hct 40.4 MCV 88 MCH 30.0 MCHC 34.2 RDW 13.8 Plt Count 256 Seg Neutrophils % 77.8 Lymphocytes % 10.6 L Monocytes % 8.7 Eosinophils % 2.2 Basophils % 0.7 Absolute Neutrophils 7.8 Absolute Lymphocytes 1.1 Absolute Monocytes 0.9 Absolute Eosinophils 0.2 Absolute Basophils 0.1 Sodium 141.0 Potassium 4.4 Chloride 104 Carbon Dioxide 25 Anion Gap 12 BUN 10 Creatinine 0.88 Est GFR ( Amer) > 60 Est GFR (Non-Af Amer) > 60 Glucose 100 Calcium 8.9 C-Reactive Protein 50.1 H Impressions: Chest X-Ray 06/08/18 00:00 IMPRESSION: NO ACUTE RADIOGRAPHIC FINDING IN THE CHEST. Hand X-Ray 06/08/18 14:21 IMPRESSION: Diffuse dorsal right hand soft tissue swelling. No underlying fracture. No soft tissue gas. Assessment & Plan - Diagnosis (1) Abscess of right hand Is this a current diagnosis for this admission?: Yes Plan: Patient has evidence of a right hand abscess. He is scheduled for operative intervention which includes irrigation debridement of the right hand I have explained the details of the surgical procedure including the extensive nature of the incision which will involve a portion of the middle finger and release of the carpal tunnel especially given his most recent complaints of numbness and tingling. Patient understands he may require further surgical intervention if the infection persists. Risks and benefits have been explained including neurovascular risk, postoperative pain, postoperative stiffness, recurrent infection. Patient has verbalized understanding consented for the procedure.
[2018-06-09] MEDS ORDERED: VANCOMYCIN HCL 1,000 MG in DEXTROSE 5%-WATER 250 ML IV SCH (14:00)
[2018-06-09] MEDS: RINGERS SOLUTION,LACTATED 1,000 ML IV PRN (15:51)
[2018-06-09] MEDS ORDERED: FENTANYL CITRATE INJ/PF 100 MCG/2 ML AMPUL ONE (17:17)
[2018-06-09] MEDS ORDERED: MIDAZOLAM 2 MG/2 ML INJ ONE (17:17)
[2018-06-09] MEDS ORDERED: PROPOFOL INJ 200 MG/20 ML VIAL IV ONE (17:17)
[2018-06-09] MEDS ORDERED: HYDROMORPHONE HCL INJ/PF 2 MG/ML AMPULE ONE (17:58)
[2018-06-09] MEDS ORDERED: ACETAMINOPHEN 1,000 MG/100 ML RTUPB IV ONE (17:59)
[2018-06-09] MEDS ORDERED: LIDOCAINE 1% INJ-PF (10 MG/ML) 30 ML SDV ONE (18:52)
[2018-06-09] MEDS ORDERED: PROMETHAZINE HCL INJ 25 MG/1 ML VIAL IV PRN (19:42)
[2018-06-09] MEDS ORDERED: FENTANYL CITRATE INJ/PF 100 MCG/2 ML AMPUL IV PRN ×3 (19:42)
[2018-06-09] MEDS ORDERED: DIPHENHYDRAMINE HCL 50 MG/ML VIAL IV PRN (19:42)
--- NOTE | 2018-06-09 19:59 | Operative Report ---
Operative Report DATE OF SURGERY: 06/09/18 PREOPERATIVE DIAGNOSIS: Right palmar hand abscess, pyogenic flexor tenosynovitis middle finger POSTOPERATIVE DIAGNOSIS: Same OPERATION: Irrigation and debridement right palmar hand abscess, pyogenic flexor tenosynovitis middle finger, open carpal tunnel release SURGEON: EVER GARCIA ANESTHESIA: GA TISSUE REMOVED OR ALTERED: Tissue sent for aerobic, anaerobic AFB and fungal culture COMPLICATIONS: None ESTIMATED BLOOD LOSS: Minimal PROCEDURE: Indication for above procedure: 58-year-old male who sustained injury approximately 1 week ago. He originally was seen at the emergency room and diagnosed with hematoma however patient continued to have discomfort along with redness and swelling. He then presented the emergency room with signs and symptoms suggesting palmar abscess. He was admitted to the orthopedic service started on antibiotics failed to see improvement. At that point patient was set up my partner for operative intervention. I discussed the risks and benefits of the procedure with the patient and given the worsening of his symptoms felt operative intervention was indicated. Risks and benefits were understood patient verbalized understanding and consented for the procedure. Procedure In Detail: Patient was seen and evaluated in the preoperative holding area. The RIGHT upper extremity was initialized and marked. Patient received 2g of Ancef IV for bacterial prophylaxis. Patient was taken back to the operative room where transferred to the operative table and placed under general anesthesia. Once they were adequately anesthetized a nonsterile tourniquet was placed on the upper extremity. A surgical team debriefing was performed ensuring all instrumentation was available, the surgical procedure was discussed with possible concerns reviewed. The upper extremity was prepped with Betadine and draped in a sterile fashion. A timeout was done identifying correct patient, procedure and extremity everyone in attendance agree with this and verbalized no concerns. The extremity was elevated the tourniquet was inflated to 250 mmHg. Wilbert's skin incision was made from the PIP joint of the middle finger and extended proximally with Wilbert's extensions at the palmar folds and continued across the transverse carpal ligament in line with the radial border of the ring finger. Blunt dissection was performed along the proximal phalanx of the middle finger. Purulence was encountered within the flexor sheath. Blunt dissection was performed the radial and ulnar neurovascular bundles were identified and retracted the A1 tian was released. Wound was copiously irrigated with normal saline. No foreign body was identified. Given patient's preoperative symptoms of numbness and tingling and felt carpal tunnel release was warranted. The superficial palmar arch was identified and protected. The distal aspect of the palmar fascia was incised identifying the transverse carpal ligament. The transverse carpal ligament was released from distal to proximal including the volar antebrachial fascia. There was significant evidence of median nerve compression just distal to the wrist flexion crease. Any nonviable tissue including adipose and granulation tissue was excised and sent to pathology for aerobic, anaerobic AFB and fungal. The wound was then copiously irrigated once again with saline. A Rodriguez drain was placed proximally and distally. Skin incision was closed with a running 3- 0 nylon suture proximally and interrupted 4-0 nylon suture distally. 10 cc of 0.5% Marcaine without epinephrine was injected for postoperative pain control. Soft dressing was placed. Sponge counts, instrument counts, needle counts counts were correct. Patient was then awoken from anesthesia. Transferred from the operating room table to the operating room stretcher. There was no intraoperative complications patient tolerated procedure well stable to PACU. Postoperative plan: Patient will continue on vancomycin and Zosyn until clinical improvement. Anticipate discharge in 48 hours on p.o. antibiotics unless patient fails to see clinical improvement. Will begin dressing changes on postop day #2.
[2018-06-09 22:14] LABS: ABSOLUTE BASOPHILS # (AUTO) 0.1 10^3/uL (0.0-0.2); ABSOLUTE EOSINOPHILS # (AUTO) 0.2 10^3/uL (0.0-0.6); ABSOLUTE LYMPHOCYTES (AUTO) 1.1 10^3/uL (0.5-4.7); ABSOLUTE MONOCYTES (AUTO) 0.8 10^3/uL (0.1-1.4); ABSOLUTE NEUT (AUTO) 8.1 10^3/uL (1.7-8.2); BASOPHILS % (AUTO) 0.8 % (0-2); HEMATOCRIT 39.4 % (37.9-51.0); HEMOGLOBIN 13.6 g/dL (13.5-17.0); LYMPHOCYTES % (AUTO) 10.8 % (13-45); MEAN CORPUSCULAR HEMOGLOBIN 30.6 pg (27.0-33.4); MEAN CORPUSCULAR HGB CONC 34.6 g/dL (32.0-36.0); MEAN CORPUSCULAR VOLUME 88 fl (80-97); MONOCYTES % (AUTO) 7.8 % (3-13); PLATELET COUNT 263 10^3/uL (150-450); RED BLOOD COUNT 4.46 10^6/uL (4.35-5.55); RED CELL DISTRIBUTION WIDTH 13.7 % (11.5-14.0); SEGMENTED NEUTROPHILS % (AUTO) 78.6 % (42-78); TOTAL CELLS COUNTED % (AUTO) 100 %; WHITE BLOOD COUNT 10.3 10^3/uL (4.0-10.5)
[2018-06-10] MEDS: PIPERACILLIN SODIUM/TAZOBACTAM 3.375 GM in NORMAL SALINE 100 ML IV SCH ×4 (03:09→21:05)
[2018-06-10] MEDS: OXYCODONE HCL IR 5 MG TABLET PO PRN (03:13)
[2018-06-10 10:14] LABS: VANCOMYCIN,TROUGH 11.3 ug/mL (5.0-20.0)
[2018-06-10] MEDS: VANCOMYCIN HCL 1,500 MG in DEXTROSE 5%-WATER 250 ML IV SCH ×2 (10:42→21:58)
--- NOTE | 2018-06-10 12:45 | PDOC PROGRESS REPORT ---
Subjective Progress Note for:: 06/10/18 Reason For Visit: RIGHT HAND PAIN 58-year-old white male postop day 1 from an I&D of a right palmar abscess. Intraoperative cultures are growing gram-positive cocci in clusters. Patient complaining of discomfort but nothing that he did not expect. Physical Exam Vital Signs: Temp Pulse Resp BP Pulse Ox 36.9 C 80 17 133/72 H 95 06/10/18 02:00 06/10/18 02:00 06/10/18 02:00 06/10/18 02:00 06/10/18 02:00 Intake & Output 06/09/18 06/10/18 06/11/18 06:59 06:59 06:59 Intake Total 970 5200 Output Total 5 Balance 970 5195 Weight 82 kg General appearance: PRESENT: no acute distress, mild distress Head exam: PRESENT: normocephalic Respiratory exam: PRESENT: unlabored Cardiovascular exam: PRESENT: RRR Vascular exam: PRESENT: normal capillary refill GI/Abdominal exam: PRESENT: soft Rectal exam: PRESENT: deferred Extremities exam: PRESENT: other - Right hand wrapped in a compressive dressing. All 5 finger tips are exposed and demonstrate brisk capillary refill. The sensory examination intact to light touch. Neurological exam: PRESENT: alert, awake, oriented to person, oriented to place , oriented to time, oriented to situation. ABSENT: motor sensory deficit Skin exam: PRESENT: dry, intact, warm. ABSENT: cyanosis, rash Results Laboratory Results: 06/09/18 21:17 06/10/18 09:30 06/09/18 06/10/18 21:17 09:30 WBC 10.3 RBC 4.46 Hgb 13.6 Hct 39.4 MCV 88 MCH 30.6 MCHC 34.6 RDW 13.7 Plt Count 263 Seg Neutrophils % 78.6 H Lymphocytes % 10.8 L Monocytes % 7.8 Eosinophils % 2.0 Basophils % 0.8 Absolute Neutrophils 8.1 Absolute Lymphocytes 1.1 Absolute Monocytes 0.8 Absolute Eosinophils 0.2 Absolute Basophils 0.1 Creatinine 0.92 Est GFR ( Amer) > 60 Est GFR (Non-Af Amer) > 60 06/09/18 19:40 Hand - Right Gram Stain - Final Impressions: Chest X-Ray 06/08/18 00:00 IMPRESSION: NO ACUTE RADIOGRAPHIC FINDING IN THE CHEST. Hand X-Ray 06/08/18 14:21 IMPRESSION: Diffuse dorsal right hand soft tissue swelling. No underlying fracture. No soft tissue gas. Status: Imported from PACS Assessment & Plan - Diagnosis (1) Abscess of right hand Is this a current diagnosis for this admission?: Yes Plan: 58-year-old white male status post I&D of a right hand abscess. Patient is being maintained on Pipracil and vancomycin empirically. Cultures are growing gram-positive cocci in clusters. Once sensitivities are available antibiotics can be tailored to the specific pathogen. - Time Time Spent with patient: 15-24 minutes Anticipated discharge: Home Within: Other
[2018-06-10] MEDS: RINGERS SOLUTION,LACTATED 1,000 ML IV PRN (21:03)
[2018-06-11] MEDS: PIPERACILLIN SODIUM/TAZOBACTAM 3.375 GM in NORMAL SALINE 100 ML IV SCH (03:28)
--- NOTE | 2018-06-11 07:29 | PDOC DISCHARGE SUMMARY ---
General - Admit/Disc Date/PCP Admission Date/Primary Care Provider: 06/10/18 14:34 Discharge Date: 06/11/18 - Discharge Diagnosis (1) Abscess of right hand Is this a current diagnosis for this admission?: Yes - Additional Information Resuscitation Status: Full Code Home Medications: No Home Medications 06/08/18 History of Present Illness History of Present Illness: MARKO CH is a 58 year old male Patient presents with progressive pain, swelling, and functional deformity associate with his right dominant hand over the course of the last week or so. He was evaluated in the emergency room where a right palmar abscess is identified and is admitted to the orthopedic service for management of the hand condition. Hospital Course Hospital Course: The patient is admitted to the hospital and started on IV antibiotic therapy. The next day the patient was taken to the operating room and undergoes uncomplicated I&D. Is returned to floor in satisfactory condition. Cultures have grown a gram-positive cocci in clusters with no further identification at this time. Dressing is changed on the morning of discharge. The wound is well approximated. There is no obvious purulence. There is some small amount of bloody drainage. There is brisk capillary refill to each of the digits. Physical Exam Vital Signs: Temp Pulse Resp BP Pulse Ox 36.4 C 84 18 135/79 H 99 06/11/18 00:53 06/11/18 00:53 06/11/18 00:53 06/11/18 00:53 06/11/18 00:53 Intake & Output 06/10/18 06/11/18 06/12/18 06:59 06:59 06:59 Intake Total 1270 Balance 1270 General appearance: PRESENT: no acute distress Head exam: PRESENT: normocephalic Respiratory exam: PRESENT: unlabored Cardiovascular exam: PRESENT: RRR Pulses: PRESENT: +1 pedal pulses bilateral Vascular exam: PRESENT: normal capillary refill GI/Abdominal exam: PRESENT: soft Rectal exam: PRESENT: deferred Extremities exam: PRESENT: other - Dressing is changed. There is brisk capillary refill to each of the digits. Wound is approximated with sutures. Rodriguez drains are removed. Neurological exam: PRESENT: alert, awake, oriented to person, oriented to place , oriented to time, oriented to situation. ABSENT: motor sensory deficit Results Impressions: Chest X-Ray 06/08/18 00:00 IMPRESSION: NO ACUTE RADIOGRAPHIC FINDING IN THE CHEST. Hand X-Ray 06/08/18 14:21 IMPRESSION: Diffuse dorsal right hand soft tissue swelling. No underlying fracture. No soft tissue gas. Status: Imported from PACS Qualifiers - * PATIENT BEING DISCHARGED WITH ANY OF THE FOLLOWING DIAGNOSIS: No VTE patient discharged on overlapping Therapy?: No Reason(s) for not prescribing Overlap Therapy:: Not indicated Plan Discharge Plan: Patient be discharged on oral Septra as well as analgesia. Follow-up with Dr. phelan in the [facility] for surgery on Friday. Time Spent: Less than 30 Minutes
[2018-06-11 08:07] VITALS: BP 121/71
== END 2018-06-11 08:42 | disposition home or self-care (01) | DRG 513 ==
LOC: ER 12:38 → INTOOBSV 15:05 → EH 15:05 → 5 17:40 → OBSVTOIN 06-10 14:34
PROVIDERS: ADMIT Orthopaedic Surgery; ATTEND Orthopaedic Surgery
PROC: 0R9W0ZX Drainage of Right Finger Phalangeal Joint, Open Approach, Diagnostic (ICD-10-PCS; 2018-06-09)
PROC: 01N50ZZ Release Median Nerve, Open Approach (ICD-10-PCS; principal; 2018-06-09 17:30)
PROC: 3E02340 Introduction of Influenza Vaccine into Muscle, Percutaneous Approach (ICD-10-PCS; 2018-06-11)
DX: M65.841 Other synovitis and tenosynovitis, right hand (principal); L02.511 Cutaneous abscess of right hand; G56.01 Carpal tunnel syndrome, right upper limb; E78.00 Pure hypercholesterolemia, unspecified; J44.9 Chronic obstructive pulmonary disease, unspecified; M19.90 Unspecified osteoarthritis, unspecified site; F17.210 Nicotine dependence, cigarettes, uncomplicated; F41.9 Anxiety disorder, unspecified; Z23 Encounter for immunization; Z87.820 Personal history of traumatic brain injury
CPT/HCPCS: 01810; 36415; 71045; 80048; 80053; 80202; 82550; 82565; 83036; 85025; 85652; 86140; 87015; 87070; 87075; 87077; 87101; 87116; 87186; 87205; 87206; 90471; 90686; 93005; 93010; 99284; G0008; G0378; J0131; J1170; J2250; J2270; J2543; J2704; J3010; J3370; J3490; J7060; J7120

== ENCOUNTER 2018-08-01 18:01 | Emergency (ER) | payer SELFPAY ==
[2018-08-01] MEDS ORDERED: ACETAMINOPHEN 325 MG TABLET PO ONE (18:36)
[2018-08-01] MEDS ORDERED: IBUPROFEN 600 MG TABLET PO ONE (18:36)
[2018-08-01] MEDS ORDERED: LIDOCAINE 1% INJ-PF (10 MG/ML) 30 ML SDV INJ ONE (18:38)
--- NOTE | 2018-08-01 18:42 | ER Document Report ---
ED General - General Chief Complaint: Laceration Stated Complaint: RT HAND INJURY Time Seen by Provider: 08/01/18 18:25 Notes: Patient is a 58-year-old male without chronic past medical history, does have a history of a deep space right hand abscess that was drained in May 2018, presents after sustaining 2 small lacerations to the dorsum of the right hand after he accidentally punched through glass shortly prior to arrival. States that he was trying to catch a garage door that was closing to abruptly and accidentally pushed his hand through the glass door. The patient arrives complaining of a throbbing, aching, constant pain to the dorsum of the right hand as well as the index finger. He states that he is concerned he may have lacerated a tendon as he is unable to extend his index finger. No history of similar injury in the past. His tetanus is up-to-date. Nothing improves his pain. Any attempt at moving the index finger does worsen the pain. TRAVEL OUTSIDE OF THE [place] IN LAST 30 DAYS: No - Related Data Allergies/Adverse Reactions: No Known Allergies Allergy (Verified 08/01/18 18:02) Past Medical History - General Information source: Patient - Social History Smoking Status: Never Smoker Frequency of alcohol use: Rare Drug Abuse: None Lives with: Family Family History: Reviewed & Not Pertinent Patient has suicidal ideation: No Patient has homicidal ideation: No - Past Medical History Cardiac Medical History: Reports: Hx Hypercholesterolemia Pulmonary Medical History: Reports: Hx COPD Renal/ Medical History: Denies: Hx Peritoneal Dialysis Musculoskeletal Medical History: Reports Hx Arthritis, Reports Hx Musculoskeletal Deformity, Reports Hx Musculoskeletal Trauma Psychiatric Medical History: Reports: Hx Anxiety Traumatic Medical History: Reports: Hx Fractures - Skull and ribs, Hx Pneumothorax - Did not need chest tube, Hx Traumatic Brain Injury Past Surgical History: Reports: Hx Orthopedic Surgery - Tendon repair to thumb - Immunizations Immunizations up to date: Yes Review of Systems - Review of Systems Notes: Constitutional: Negative for fever. Eyes: Negative for visual changes. ENT: Negative for facial injury Cardiovascular: Negative for chest injury. Respiratory: Negative for shortness of breath. Gastrointestinal: Negative for abdominal injury. Genitourinary: Negative for genital injury Musculoskeletal: Positive for right hand injury Skin: Positive for laceration/abrasions. Neurological: Negative for head injury. Physical Exam - Vital signs Vitals: Temp Pulse Resp BP Pulse Ox 98.7 F 88 18 147/86 H 95 08/01/18 18:10 08/01/18 18:10 08/01/18 18:10 08/01/18 18:10 08/01/18 18:10 Interpretation: Hypertensive Notes: PHYSICAL EXAMINATION: GENERAL: Appears moderately uncomfortable but in no acute distress HEAD: Atraumatic, normocephalic. EYES: sclera anicteric, conjunctiva are normal. ENT: Moist mucous membranes. NECK: Normal range of motion LUNGS: Normal work of breathing HEART: 2+ radial pulses bilaterally, capillary refill less than 1 second in all digits the right hand EXTREMITIES: Full flexion and extension at the thumb and third through fifth digits of the right hand. Full flexion at the index finger at the DIP, PIP and MCP. Patient has effectively no effort on extension at PIP, MCP or DIP of the index finger. The finger rests in flexion. NEUROLOGICAL: No focal neurological deficits. Moves all extremities spontaneously and on command. PSYCH: Normal mood, normal affect. SKIN: Warm, Dry, normal turgor, there are 2 0.5 cm lacerations overlying the radial aspect of the dorsum of the right hand Course - Re-evaluation Re-evalutation: 08/01/18 18:44 Patient presents with 2 small lacerations to the back of the right hand with what appears to be an associated extensor tendon injury of the index finger. This is his dominant hand. He did not sustain any additional injuries. Tetanus is up-to-date. X-rays pending to evaluate for any evidence of a foreign body or acute fracture. Wound will be irrigated and closed. Will discuss with orthopedic surgery as patient does have an extensor tendon injury. 08/01/18 19:[address] Wyman, he will follow the patient up in the office on Friday for his extensor tendon injury. Wounds have been closed without difficulty. Patient has been started on cephalexin. At this time will discharge with return precautions and follow-up recommendations. Verbal discha rge instructions given a the bedside and opportunity for questions given. Medication warnings reviewed. Patient is in agreement with this plan and has verbalized understanding of return precautions and the need for orthopedic surgical follow-up on Friday. - Vital Signs Vital signs: Temp Pulse Resp BP Pulse Ox 98.7 F 88 18 147/86 H 96 08/01/18 18:10 08/01/18 18:10 08/01/18 18:10 08/01/18 18:10 08/01/18 18:11 Procedures - Laceration/Wound Repair Right Hand Wound length (cm): 2 Wound's Depth, Shape: Superficial Anesthetic type: 1% Lidocaine Wound explored: Clean Irrigated w/ Saline (mLs): 500 Wound Debrided: Minimal Wound Repaired With: Sutures Suture Size/Type: 5:0 Number of Sutures: 3 Layer Closure?: No Post-procedure wound care: Sterile dressing applied Post-procedure NV exam normal: Yes Complications: No Right hand Wound length (cm): 1.5 Wound's Depth, Shape: Superficial Laceration pre-procedure: Sterile PPE donned Anesthetic type: 1% Lidocaine Volume Anesthetic (mLs): 1 Wound explored: Clean Irrigated w/ Saline (mLs): 500 Wound Debrided: Minimal Wound Repaired With: Sutures Suture Size/Type: 5:0, Prolene Number of Sutures: 3 Layer Closure?: No Post-procedure wound care: Sterile dressing applied Post-procedure NV exam normal: Yes Complications: No Discharge - Discharge Clinical Impression: Laceration of right hand Qualifiers: Encounter type: initial encounter Foreign body presence: without foreign body Qualified Code(s): S61.411A - Laceration without foreign body of right hand, initial encounter Injury of extensor tendon of hand Qualifiers: Encounter type: initial encounter Laterality: right Qualified Code(s): S66.901A - Unspecified injury of unspecified muscle, fascia and tendon at wrist and hand level, right hand, initial encounter Condition: Good Disposition: HOME, SELF-CARE Additional Instructions: Please return to your primary doctor, the ED, or an urgent care in 7 days for suture removal. Return immediately if you develop spreading redness around the wound, pus from the wound, worsening pain, or a fever of >100.4. Keep the area clean and dry. Wash gently with soap and water twice daily and cover with antibiotic ointment. You need to follow-up with Dr. Wyman on Friday as you did injure 1 of the extensor tendons of your right hand. Your x-ray is otherwise normal and does not show any foreign bodies or fractures. Prescriptions: Cephalexin Monohydrate [Keflex 500 mg Capsule] 500 mg PO Q6H 5 Days capsule Referrals: NORA WYMAN MD [ACTIVE STAFF] - 08/03/18
--- NOTE | 2018-08-01 19:06 | RADIOLOGY REPORT (SQ) ---
EXAM DESCRIPTION: HAND RIGHT 3 VIEWS COMPLETED DATE/TIME: 08/01/2018 6:56 pm REASON FOR STUDY: lac, eval foreign body, fx COMPARISON: 06/08/2018 EXAM PARAMETERS: NUMBER OF VIEWS: Three views. TECHNIQUE: AP, lateral and oblique radiographic images acquired of the right hand. LIMITATIONS: None. FINDINGS: MINERALIZATION: Normal. BONES: No acute fracture or dislocation. No worrisome bone lesions. JOINTS: No effusions. SOFT TISSUES: Soft tissue swelling about the dorsum of the hand. Redemonstrated radiodense metallic body of the right 3rd finger. OTHER: No other significant finding. IMPRESSION: Soft tissue swelling about the dorsum of the hand. No new radiopaque foreign body. Ple ase note that glass may be radiolucent. TECHNICAL DOCUMENTATION: JOB ID: [id number] [employer]- All Rights Reserved Reading location - IP/workstation name: [email or web address]
[2018-08-01 20:25] VITALS: BP 133/80
== END 2018-08-01 20:26 | disposition home or self-care (01) ==
LOC: ER 18:01
PROC: 0HQFXZZ Repair Right Hand Skin, External Approach (ICD-10-PCS; principal; 2018-08-01)
DX: S61.411A Laceration without foreign body of right hand, initial encounter (principal); W25.XXXA Contact with sharp glass, initial encounter; Y93.89 Activity, other specified; S66.901A Unspecified injury of unspecified muscle, fascia and tendon at wrist and hand level, right hand, initial encounter; J44.9 Chronic obstructive pulmonary disease, unspecified
CPT/HCPCS: 99283; 73130; 12002; J3490

== ENCOUNTER 2018-08-07 09:57 | Day surgery (SDC) | payer SELFPAY ==
[2018-08-06 11:14] LABS: HEMATOCRIT 46.3 % (37.9-51.0); MEAN CORPUSCULAR HEMOGLOBIN 30.3 pg (27.0-33.4); MEAN CORPUSCULAR HGB CONC 34.6 g/dL (32.0-36.0); MEAN CORPUSCULAR VOLUME 88 fl (80-97); PLATELET COUNT 231 10^3/uL (150-450); RED BLOOD COUNT 5.29 10^6/uL (4.35-5.55); RED CELL DISTRIBUTION WIDTH 14.1 % (11.5-14.0); WHITE BLOOD COUNT 6.1 10^3/uL (4.0-10.5)
[2018-08-06 11:22] LABS: APPEARANCE,URINE CLEAR; BILIRUBIN,URINE NEGATIVE (NEGATIVE); COLOR,URINE YELLOW; GLUCOSE, URINE NEGATIVE (NEGATIVE); KETONES,URINE NEGATIVE (NEGATIVE); LEUKOCYTE ESTERASE,URINE NEGATIVE (NEGATIVE); NITRITE,URINE NEGATIVE (NEGATIVE); PROTEIN,URINE NEGATIVE (NEGATIVE); URINE SPECIFIC GRAVITY 1.019
[2018-08-06 11:32] LABS: ANION GAP 11 (5-19); BLOOD UREA NITROGEN 15 mg/dL (7-20); CALCIUM 9.9 mg/dL (8.4-10.2); CARBON DIOXIDE 26 mmol/L (22-30); CHLORIDE 104 mmol/L (98-107); GLUCOSE 87 mg/dL (75-110); POTASSIUM 4.7 mmol/L (3.6-5.0); SODIUM 140.7 mmol/L (137-145)
[~2018-08-07 09:57] MED LIST: ACETAMINOPHEN 1,000 MG/100 ML RTUPB IV ONE; CEFAZOLIN SODIUM 2 GM in DEXTROSE 5%-WATER 100 ML IV PRN; DEXAMETHASONE SOD PHOSPHATE INJ 4 MG/1 ML VIAL ONE; FENTANYL CITRATE INJ/PF 100 MCG/2 ML AMPUL ONE; LACTATED RINGERS 1000 ML IV PRN; LIDOCAINE 0.5% INJ-PF (5 MG/ML) 50 ML SDV SUBCUT PRN; MIDAZOLAM 2 MG/2 ML INJ ONE; ONDANSETRON HCL INJ/PF 4 MG/2 ML SDV ONE; PROPOFOL INJ 200 MG/20 ML VIAL IV ONE
[2018-08-07] MEDS ORDERED: BUPIVACAINE HCL 0.5 % INJ/PF 30 ML SDV ONE (10:43)
[2018-08-07] MEDS ORDERED: ALBUTEROL SULFATE 0.083% NEB 2.5 MG/3 ML AMPUL NEB ONE (11:57)
[2018-08-07] MEDS ORDERED: PROMETHAZINE HCL INJ 25 MG/1 ML VIAL IV PRN ×2 (13:08)
[2018-08-07] MEDS ORDERED: MEPERIDINE HCL/PF INJ 25 MG/1 ML DISP.SYRIN IV PRN (13:08)
[2018-08-07] MEDS ORDERED: FENTANYL CITRATE INJ/PF 100 MCG/2 ML AMPUL IV PRN ×3 (13:08)
[2018-08-07] MEDS ORDERED: DIPHENHYDRAMINE HCL 50 MG/ML VIAL IV PRN (13:08)
[2018-08-07] MEDS ORDERED: ONDANSETRON HCL INJ/PF 4 MG/2 ML SDV IV PRN (13:08)
[2018-08-07] MEDS ORDERED: MORPHINE SULFATE 10 MG/ML INJ IV PRN ×2 (13:08→13:56)
--- NOTE | 2018-08-07 13:54 | Operative Report ---
Operative Report DATE OF SURGERY: 08/07/18 PREOPERATIVE DIAGNOSIS: Right index finger extensor tendon laceration POSTOPERATIVE DIAGNOSIS: Same OPERATION: Irrigation debridement with repair of right index finger extensor tendon laceration zone 6 SURGEON: EVER GARCIA ANESTHESIA: GA COMPLICATIONS: None ESTIMATED BLOOD LOSS: Minimal PROCEDURE: Indication for above procedure: 58-year-old male who sustained a laceration to his right hand. After injury patient was unable to fully extend his index finger. At that point we discussed treatment options including operative versus nonoperative intervention risks and benefits were explained to the patient patient verbalized understanding and consented for the above procedure. Procedure In Detail: Patient was seen and evaluated in the preoperative holding area. The RIGHT upper extremity was initialized and marked. Patient received 2g of Ancef IV for bacterial prophylaxis. Patient was taken back to the operative room where transferred to the operative table and placed under general anesthesia. Once they were adequately anesthetized a nonsterile tourniquet was placed on the upper extremity. A surgical team debriefing was performed ensuring all instrumentation was available, the surgical procedure was discussed with possible concerns reviewed. The upper extremity was prepped with Betadine and draped in a sterile fashion. A timeout was done identifying correct patient, procedure and extremity everyone in attendance agree with this and verbalized no concerns. The extremity was exsanguinated the tourniquet was inflated to 250 mmHg. Transverse laceration was extended proximally and distally to identify the extensor tendon laceration of the EDC/DIP. The proximal and distal aspects were isolated and then repaired with a running Silverskiold 4-0 FiberWire suture which adequately reapproximate the tendon without evidence of gapping. There was disruption of the superficial radial nerve branches however there was 2 lacerations and ultimately a segmental injury noted. And thus the nerve was not repairable the proximal aspect was buried into the adjacent interossei to avoid postoperative neuroma. Wound was copiously irrigated with normal saline. Skin was then closed with interrupted 3-0 nylon suture. Sponge counts, instrument counts, needle counts were correct. Patient was then awoken from anesthesia. Transferred from the operating room table to the operating room stretcher. There was no intraoperative complications patient tolerated procedure well stable to PACU. Postoperative plan: Patient follow-up the office in 2 weeks at which point we will set him up for occupational therapy to be fitted for a thermoplastic splint.
[2018-08-07] MEDS ORDERED: OXYCODONE-ACETAMINOPHEN 5-325 MG TABLET PO PRN (13:56)
--- NOTE | 2018-08-07 13:56 | Discharge Summary ---
Discharge Summary (SDC) - Discharge Final Diagnosis: Right hand extensor tendon laceration Date of Surgery: 08/07/18 Discharge Date: 08/07/18 Condition: Good Treatment or Instructions: Schedule Follow Up w/ Dr. Joseph Swift @ [facility] for Surgery to be seen in 10-14 days or as scheduled [place]: [place]: [place]: Ice and elevate Keep splint clean/dry/intact. If your fingers become numb please unwrap the Lee wrap but leave the splint in place, if the sensation does not return within 30 minutes please return to the emergency department. May begin finger range of motion attempting to make full fist. Please use ibuprofen (Motrin or Advil) 600-800 mg every 8 hours as needed for pain or fever DO NOT TAKE w/ TORADOL may use once TORADOL complete. You may also use acetaminophen (Tylenol) 1000 mg every 4-6 hours as needed for pain or fever. Please be aware that many medications contain acetaminophen, do not exceed a total of 1000 mg of acetaminophen every 6 hours. If ibuprofen and acetaminophen are not sufficient for your pain you may take the Percocet/[place]. Please be aware that the Percocet/[place] does contain Tylenol. Stool softener of choice when on pain medication. USE OF [id number] IBUPROFEN: Ibuprofen (Advil, Nuprin, Medipren, Motrin IB) is a medication for fever and pain control. In addition, it has anti- inflammatory effects which may be beneficial, especially in the treatment of injuries. It's best to take ibuprofen with food. Persons with ulcer disease or allergy to aspirin should notify their physician of this before taking ibuprofen. Ibuprofen can be given every four to six hours, for a total of four doses daily. Age Pain or fever dose Antiinflammatory dose 6-8 yr 200 mg (1 tab) 200 mg (1 tab) 9-11 yr 200 mg (1 tab) 200-400 mg (1-2 tab) 11-14 yr 200-400 mg (1-2 tab) 400 mg (2 tab) 15-adult 400 mg (2 tab) 600 mg (3 tab) ORAL NARCOTIC MEDICATION: You have been given a prescription for pain control. This medication is a narcotic. It's best taken with food, as nausea can result if taken on an empty stomach. Don't operate machinery or drive within six hours of taking this medication. Do not combine this medicine with alcohol, or with any medication which can cause sedation (such as cold tablets or sleeping pills) unless you get permission from the physician. Narcotics tend to cause constipation. If possible, drink plenty of fluids and eat a diet high in fiber and fruits. Please be aware that prescription narcotics also have the potential for abuse. People become addicted to these medications because of the general sense of wellbeing that they induce. This feeling along with a significant reduction in tension, anxiety, and aggression provides a stimulating seductive quality to these drugs. Once your pain is under control, we encourage you to discard your unused narcotics. Prescriptions: Oxycodone HCl/Acetaminophen [Percocet 5-325 mg Tablet] 1 tab PO Q6 PRN #25 tab PRN Reason: Discharge Diet: As Tolerated Respiratory Treatments at Home: Deep Breathing/Coughing Discharge Activity: No Lifting Over 10 Pounds, No Lifting/Push/Pulling Report the Following to Your Physician Immediately: Fever over 101 Degrees, Unusual Bleeding, Redness, Swelling, Warmth, Increased Soreness
[2018-08-07 16:31] VITALS: BP 118/74
== END 2018-08-07 15:50 | disposition home or self-care (01) ==
LOC: OROUT 09:57
PROVIDERS: ATTEND Orthopaedic Surgery
DX: S66.320A Laceration of extensor muscle, fascia and tendon of right index finger at wrist and hand level, initial encounter (principal); S64.21XA Injury of radial nerve at wrist and hand level of right arm, initial encounter; S61.210A Laceration without foreign body of right index finger without damage to nail, initial encounter; W25.XXXA Contact with sharp glass, initial encounter; L02.511 Cutaneous abscess of right hand; M79.641 Pain in right hand; J44.9 Chronic obstructive pulmonary disease, unspecified; Z87.891 Personal history of nicotine dependence
CPT/HCPCS: 36415; 85027; 80048; 81001; 26418; J2250; J3490; J0690; J1100; J3010; J2405; J2704; J0131; 1810